=== PATIENT | male | born 1985 | race Caucasian/White ===

== ENCOUNTER 2018-03-16 13:22 | Emergency (ER) | payer OTHER ==
[2018-03-16 14:24] VITALS: BP 113/67
--- NOTE | 2018-03-16 14:59 | UC ---
UC General HPI - HPI Summary HPI Summary: 2 YEAR HX OF EPISODIC PAIN AND SWELLING TO INSIDE OF L KNEE. WORSENING. NO ACUTE INJURY. SOMETIMES KNEE WILL LOCK. - History of Current Complaint Chief Complaint: UCGeneralIllness Stated Complaint: LT KNEE COMPLAINT Time Seen by Provider: 03/16/18 14:53 Hx Obtained From: Patient Pain Intensity: 0 - Allergy/Home Medications Allergies/Adverse Reactions: Allergies Allergy/AdvReac Type Severity Reaction Status Date / Time No Known Allergies Allergy Verified 03/16/18 14:25 PMH/Surg Hx/FS Hx/Imm Hx Previously Healthy: Yes - Surgical History Surgical History: None - Social History Occupation: Employed Full-time Alcohol Use: None Substance Use Type: Marijuana Smoking Status (MU): Heavy Every Day Tobacco Smoker Type: Cigarettes Amount Used/How Often: 1 PPD Have You Smoked in the Last Year: Yes - Immunization History Most Recent Tetanus Shot: WITHIN 5 YEARS Review of Systems All Other Systems Reviewed And Are Negative: Yes Constitutional: Positive: Negative Skin: Positive: Negative Eyes: Positive: Negative ENT: Positive: Negative Respiratory: Positive: Negative Cardiovascular: Positive: Negative Gastrointestinal: Positive: Negative Genitourinary: Positive: Negative Neurovascular: Positive: Negative Musculoskeletal: Positive: Negative Neurological: Positive: Negative Psychological: Positive: Negative Physical Exam Triage Information Reviewed: Yes Appearance: Well-Appearing Vital Signs: Initial Vital Signs Temp 98.0 F 03/16/18 14:20 Pulse 69 03/16/18 14:20 Resp 18 03/16/18 14:20 BP 113/67 03/16/18 14:20 Pulse Ox 99 03/16/18 14:20 Vital Signs Reviewed: Yes Eyes: Positive: Conjunctiva Clear ENT: Positive: Normal ENT inspection Neck: Positive: Supple Respiratory: Positive: Lungs clear, Normal breath sounds Cardiovascular: Positive: RRR, No Murmur Abdomen Description: Positive: Nontender, No Organomegaly, Soft Bowel Sounds: Positive: Present Musculoskeletal: Positive: Other: - LLE: HIP NON TENDER. MEDIAL KNEE WITH SLIGHT SWELLING AND TENDERNESS BUT NOT RED OR WARM. PASSIVE/ACTIVE ROM INTACT. NO LAXITY. REST OR LOWER LEG IS NON TENDER AND HAS FULL S/V/M FUNCTION. Neurological: Positive: Alert Psychological: Positive: Age Appropriate Behavior Skin Exam: Normal Skin: Negative: Rashes Diagnostics - Radiology No standard instances Radiology Interpretation Completed By: Radiologist - L KNEE IMPRESSION: NO EVIDENCE FOR FRACTURE. Course/Dx - Differential Dx - Multi-Symptom Differential Diagnoses: Other - OA, TENDINTIS, BURSITIS, MENISCAL TEAR - Diagnoses Provider Diagnosis: Pes anserinus bursitis of left knee Discharge - Sign-Out/Discharge Documenting (check all that apply): Patient Departure All imaging exams completed and their final reports reviewed: Yes - Discharge Plan Condition: Stable Disposition: HOME Prescriptions: Naproxen [Naprosyn 500 mg tab] 500 mg PO BID 5 Days #10 tablet Patient Education Materials: Knee Bursitis (ED), Meniscus Tear (ED) Referrals: Stephane Weaver MD [Medical Doctor] - As Soon As Possible - Billing Disposition and Condition Condition: STABLE Disposition: Home - Attestation Statements Provider Attestation: I was available for consult. This patient was seen by the LISSA. The patient was not presented to, seen by, or examined by me. -Tej
[2018-03-16] MEDS ORDERED: Ibuprofen ADULT LIQ* 600 MG/30 ML UDC PO ONE (15:02)
== END 2018-03-16 15:50 | disposition home or self-care (01) ==
LOC: UCCORT 13:22
DX: M70.52 Other bursitis of knee, left knee (principal); F17.210 Nicotine dependence, cigarettes, uncomplicated
CPT/HCPCS: 99202; A9270-GY; G0463

== ENCOUNTER → 2018-04-08 07:34 | Day surgery (SDC) | payer OTHER ==
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
[~2018-04-08 07:34] MED LIST: Acetaminophen TAB* 325 MG PO PRN; Buffered Lidocaine 1% SYRIN* 1 ML/SYRINGE INTRADERM ONE; Chloroprocaine 2%* 20 ML VIAL ONE; Dexamethasone IV* 4 MG/ML 1 ML (4 MG) ONE; DiMENhydriNATE IV* 50 MG/ML VIAL IV PUSH PRN; Ketorolac INJ* 30 MG/ML 1 ML VIAL ONE; Lactated Ringers 1000 ML Bag* 1,000 ML IV SCH; Lidocaine 1% MPF wEPI 200,000* 30 ML SDV ONE; Lidocaine 2% PF * 5 ML VIAL ONE; Metoclopramide IV* 5 MG/ML 2 ML VIAL ONE; Midazolam* 1 MG/ML 2 ML VIAL (2 MG) ONE; Naloxone* 0.4 MG/ML 1 ML VIAL IV PRN; Ondansetron INJ* 2 MG/ML VIAL ONE; Propofol* 10 MG/ML 20 ML BTL ONE; Rocuronium* 10 MG/ML VIAL ONE; Ropivacaine* 2 MG/ML 20 ML VIAL (0.2%) ONE; Sugammadex * 200 MG/2 ML VIAL IV PUSH ONE; ceFAZolin 2 GM PREMIX in ORs 2 GM/50 ML BAG IVPB ONE; fentaNYL* 50 MCG/ML 2 ML VIAL (100 MCG VIAL) IV PRN; fentaNYL* 50 MCG/ML 2 ML VIAL (100 MCG VIAL) ONE; oxyCODONE TAB* 5 MG TAB PO PRN
[2018-04-08 11:48] VITALS: BP 109/76
--- NOTE | 2018-04-09 01:39 | OP ---
DATE OF OPERATION: 04/08/18 - [facility] DATE OF : 83 SURGEON: Santa Wisdom MD MUCKER COFFERDAM: None available. ANESTHESIA: General. ANESTHESIOLOGIST: Dr. Padilla. PRE-OP DIAGNOSIS: Left knee medial meniscus tear. POST-OP DIAGNOSIS: Left knee medial meniscus tear. OPERATIVE PROCEDURE: Left knee arthroscopy with partial medial meniscectomy, partial lateral meniscectomy. INDICATIONS: Nathanael Craven is a 32-year-old male who has persistent catching and locking of his knee, was diagnosed with a posterior root of the medial meniscus tear. He has failed conservative management and would like to proceed with surgical treatment. Risks and benefits were discussed at length including, but not limited to bleeding; infection; damage to nerves, vessels, surrounding structures; wound nonhealing; persistent pain; need for further surgery; scarring; stiffness; incomplete relief of symptoms; risk of anesthesia. COMPLICATIONS: None. ESTIMATED BLOOD LOSS: Minimal. DESCRIPTION OF PROCEDURE: The patient was greeted in the preoperative area by the attending surgeon. The correct side was marked and consent was confirmed. The patient was brought back to the operating suite was placed in the supine position on the operating table and then underwent general anesthesia with LMA intubation, after which he was appropriately positioned in the bed. All bony prominences were padded, unsterile tourniquet was placed high on the proximal thigh. A lateral post was positioned. The left leg was then prepped and draped in the usual sterile fashion beginning with chlorhexidine soap, scrub and alcohol wipe, and a final prep with ChloraPrep. After an appropriate surgical pause indicating side, site and procedure, administration of antibiotics, the knee was intra-articularly injected with 1% lidocaine with epi. An anterolateral portal was made sharply with 11 blade. The scope was introduced into the joint and the joint was examined. ACL and PCL were intact. There was minimal synovitis present. The anteromedial portal was made in outside-in fashion. The patellofemoral joint had grade 0 to 1 changes. The medial and lateral gutters were intact. The medial femoral condyle had grade 1 changes to the medial femoral condyle and lateral plateau. The meniscus had unstable flap tearing; it was like a parrot-beak type tear, this was debrided back. The root was also examined as well and had a flap that was subluxed somewhat. The everett and biters were then used to carefully do a partial meniscectomy. Once this was complete and the [place] portal was checked as well to make sure there was no flap in there as well as no flap in the gutter. The lateral compartment was examined and there was mild fraying of the lateral femoral condyle. Therefore, a partial lateral meniscectomy was done as well. The knee was then thoroughly lavaged, removed of all loose debris. The wounds were copiously irrigated with sterile saline. Portals were closed with 3-0 nylon. The knee was intra- articularly and superficially injected with 0.2% ropivacaine. Sterile dressings were applied as well as the Cryo/Cuff. He was awoken from anesthesia and transferred to PACU in stable condition. POSTOPERATIVE PLAN: He will be weightbearing as tolerated with crutches for the first 3 to 5 days, range of motion as tolerated. He will be discharged on pain medication. DVT prophylaxis was considered, but deferred due to no previous personal or family history. I will see the patient back in 10 to 14 days. [id number]/[facility] #: [id number] [facility] CENTERKamlesh
== END | disposition home or self-care (01) ==
LOC: OR 07:34
PROVIDERS: ATTEND Orthopaedic Surgery
DX: S83.242A Other tear of medial meniscus, current injury, left knee, initial encounter (principal); S83.282A Other tear of lateral meniscus, current injury, left knee, initial encounter; V86.59XA Driver of other special all-terrain or other off-road motor vehicle injured in nontraffic accident, initial encounter; Y92.9 Unspecified place or not applicable; Z72.0 Tobacco use
CPT/HCPCS: J0690; J1100; J1885; J2001; J2250; J2400; J2405; J2704; J2765; J2795; J3010